=== PATIENT | male | born 1985 | race Caucasian/White ===

== ENCOUNTER 2018-06-13 21:54 | Emergency (ER) | payer SELFPAY ==
[2018-06-13 23:04] LABS: BASO % 0.5 % (0.0-2.0); EOS # 0.1 K/uL (0.0-0.7); EOS % 1.3 % (0.0-4.0); HEMOGLOBIN 16.9 g/dL (12.0-18.0); LYMPH # 1.5 K/uL (1.0-4.3); MEAN CELL VOLUME 94.9 fL (80.0-94.0); MEAN CORPUSCULAR HEMOGLOBIN 33.1 pg (27.0-31.0); MEAN CORPUSCULAR HGB CONC 34.9 g/dL (33.0-37.0); MEAN PLATELET VOLUME 7.8 fL (7.2-11.7); MONO # 0.6 K/uL (0.0-0.8); MONO % 9.6 % (0.0-10.0); NEUT # 4.3 K/uL (1.8-7.0); NEUT % 65.6 % (50.0-75.0); NRBC % 0.1 % (0.0-2.0); RBC 5.09 Mil/uL (4.40-5.90); RED CELL DISTRIBUTION WIDTH 12.2 % (11.5-14.5); WHITE BLOOD COUNT 6.5 K/uL (4.8-10.8)
[2018-06-13 23:05] LABS: URINE BILIRUBIN NEGATIVE (NEGATIVE); URINE BLOOD NEGATIVE (NEGATIVE); URINE CLARITY Clear (Clear); URINE COLOR Yellow (YELLOW); URINE GLUCOSE (UA) NORMAL (Normal); URINE LEUKOCYTE ESTERASE NEG Leu/uL (Negative); URINE PROTEIN NEGATIVE (NEGATIVE)
[2018-06-13 23:16] LABS: ALBUMIN 4.9 g/dL (3.5-5.0); ALT/SGPT 31 U/L (21-72); AST/SGOT 30 U/L (17-59); BLOOD UREA NITROGEN 15 mg/dL (9-20); CALCIUM 9.2 mg/dl (8.6-10.4); GFR NON-AFRICAN AMERICAN > 60
[2018-06-13 23:20] LABS: ALB/GLOB RATIO 1.4 (1.0-2.1)
--- NOTE | 2018-06-14 00:16 | C.PDOC ---
History Of Present Illness 33-year-old male presents to the ED for evaluation of generalized body aches, chills, headache, and abdominal cramps which began yesterday. 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 Patient's fr iend was recently evaluated for similar symptoms and was admitted for salmonella bacteremia. Patient is concerned that he may have the same, since he has been in close contact with his friend. Patient denies fever, nausea, vomiting. Time Seen by Provider: 06/13/18 22:07 Chief Complaint (Nursing): Headache History Per: Patient History/Exam Limitations: no limitations Onset/Duration Of Symptoms: Hrs Current Symptoms Are (Timing): Still Present Quality: Aching Associated Symptoms: denies: Nausea, Vomiting Additional History Per: Patient Past Medical History Reviewed: Historical Data, Nursing Documentation, Vital Signs Vital Signs: Last Vital Signs Temp 99.3 F 06/13/18 21:57 Pulse 95 H 06/13/18 21:57 Resp 20 06/13/18 21:57 BP 107/71 06/13/18 21:57 Pulse Ox 100 06/13/18 21:57 - Medical History PMH: No Chronic Diseases Surgical History: Appendectomy Family History: States: Unknown Family Hx - Social History Hx Tobacco Use: No Hx Alcohol Use: No Hx Substance Use: No - Immunization History Hx Tetanus Toxoid Vaccination: No Hx Influenza Vaccination: Yes Hx Pneumococcal Vaccination: No Review Of Systems Constitutional: Positive for: Chills. Negative for: Fever Gastrointestinal: Positive for: Abdominal Pain. Negative for: Nausea, Vomiting Musculoskeletal: Positive for: Other (generalized body aches ) Neurological: Positive for: Headache Physical Exam - Physical Exam Appears: Non-toxic, No Acute Distress Skin: Normal Color, Warm, Dry Head: Atraumatic, Normacephalic Eye(s): bilateral: Normal Inspection Oral Mucosa: Moist Neck: Supple Chest: Symmetrical, No Deformity, No Tenderness Cardiovascular: Rhythm Regular, No Murmur Respiratory: Normal Breath Sounds, No Rales, No Rhonchi, No Wheezing Gastrointestinal/Abdominal: Soft, No Tenderness, No Guarding, No Rebound Extremity: Normal ROM, Capillary Refill (less than 2 seconds ) Neurological/Psych: Oriented x3, Normal Speech, Normal Cognition ED Course And Treatment - Laboratory Results Result Diagrams: 06/13/18 22:58 06/13/18 22:58 O2 Sat by Pulse Oximetry: 100 (on RA) Pulse Ox Interpretation: Normal Progress Note: Case discussed with Dr. Ledesma, who suggested to order bloodwork and blood culture. Advised that if results are within normal limits, patient to be given Cipro in the ED and discharged with Cipro. Bloodwork, urinalysis, Flu swab, CXR ordered and reviewed. Results are within normal limits. Toradol IVP and Cipro PO given. Patient is resting comfortably, showing no signs of distress and is stable for discharge with Rx for Cipro. Patient is advised to f/u with his PMD within 1-2 days for further evaluation. Advised to return to the ED if symptoms persist or worsen. Disposition - Disposition Disposition: HOME/ ROUTINE Disposition Time: 00:15 Condition: STABLE Additional Instructions: Follow up with your PMD within 1-2 days. Return to ED if feels worse. Prescriptions: Ciprofloxacin [Cipro] 1 tab PO BID #14 tab Instructions: Salmonellosis (Salmonella), Ciprofloxacin (Systemic) Forms: Message Bus (Serbian) Print Language: FAROESE - Clinical Impression Clinical Impression: Body aches, Headache - PA / END FRAZER / Resident Statement MD/DO has reviewed & agrees with the documentation as recorded. - Scribe Statement The provider has reviewed the documentation as recorded by the Scribe (Dayana Conde) All medical record entries made by the Scribe were at my direction and personally dictated by me. I have reviewed the chart and agree that the record accurately reflects my personal performance of the history, physical exam, medical decision making, and the department course for this patient. I have also personally directed, reviewed, and agree with the discharge instructions and disposition.
[2018-06-14 00:22] VITALS: BP 119/80; PULSE 83; RESP 18; TEMP 98.3
[2018-06-14 00:43] VITALS: O2SAT 100
--- NOTE | 2018-06-14 07:50 | RAD ---
Chest x-ray two views HISTORY: Shortness of breath. COMPARISON: None available. FINDINGS: No focal infiltrate or effusion Heart size within normal limits. Impression: No focal infiltrate or effusion.
== END 2018-06-14 00:22 | disposition home or self-care (01) ==
LOC: C.ER 21:54
DX: R51 Headache (principal)
CPT/HCPCS: 71046; 80053; 81001; 82550; 85025; 87040; 87086; 87804; 96374; 99285; J1885